=== PATIENT | female | born 1990 | race Caucasian/White ===

== ENCOUNTER 2016-11-27 18:45 | Emergency (ER) | payer OTHER ==
[~2016-11-27] VITALS: Ht 157.5 cm; Wt 47.5 kg
[2016-11-27 18:50] VITALS: Ht 157.5 cm; Wt 47.5 kg
[2016-11-27 21:56] LABS: BASOPHIL # 0.1 10^3/ul (0.0-0.1); BASOPHILS % 0.4 % (0.0-2.0); EOSINOPHILS # 0.3 10^3/ul (0.0-0.5); HEMATOCRIT 42.6 % (37.0-47.0); HEMOGLOBIN 14.8 g/dl (12.0-16.0); LYMPHOCYTES # 3.1 10^3/ul (0.8-2.9); MEAN CORPUSCULAR HEMOGLOBIN 30.6 pg (29.0-33.0); MEAN CORPUSCULAR HGB CONC 34.8 g/dl (32.0-37.0); MEAN CORPUSCULAR VOLUME 87.9 fl (82.0-101.0); MEAN PLATELET VOLUME 8.8 fl (7.4-10.4); MONOCYTE # 0.6 10^3/ul (0.3-0.9); MONOCYTES % 4.8 % (0.0-11.0); NEUTROPHIL # 9.2 10^3/ul (1.6-7.5); NEUTROPHILS % 69.8 % (39.0-77.0); PLATELET COUNT 356 10^3/UL (140-440); RED BLOOD COUNT 4.85 10^6/ul (4.20-5.40); RED CELL DISTRIBUTION WIDTH 12.6 % (11.5-14.5); UNCORRECTED WBC 13.2 10^3/ul (4.8-10.8); WHITE BLOOD COUNT 13.2 10^3/ul (4.8-10.8)
[2016-11-27 21:57] LABS: CONDITION 1
--- NOTE | 2016-11-27 22:06 | ERD ---
ER Documentation Chief Complaint Date/Time DATE: 11/27/16 TIME: 22:04 Chief Complaint sudden gush of vag blood in the last hr, LMP=10/09/16 HPI This is a 26-year-old female presents to the ER with vaginal bleeding that started earlier today. Patient states that vaginal bleeding is severe. Patient has been spotting over the last week however he got worse today. A1. She is about 7 weeks . Her last normal menstrual period was on 10/09/2015. She denies any urinary frequency or dysuria. She denies any pelvic pain. She denies fevers or chills. ROS 12 point review of systems was done, all negative except per HPI. Allergies Allergies: Coded Allergies: No Known Allergy (Unverified , 11/27/16) PMhx/Soc Hx Alcohol Use: No Hx Substance Use: No Hx Tobacco Use: No Physical Exam Vitals Vital Signs Date Time Temp Pulse Resp B/P Pulse Ox O2 Delivery O2 Flow Rate FiO2 11/27/16 18:50 98.7 110 18 110/63 96 Physical Exam GENERAL: The patient is well developed and appropriate for usual state of health , in no apparent distress. HEENT: Atraumatic. CHEST: Clear to auscultation bilaterally. There are no rales, wheezes or rhonchi. HEART: Regular rate and rhythm. No murmurs, clicks, rubs or gallops. ABDOMEN: Soft, nontender and nondistended. Good bowel sounds. No rebound or guarding. No gross peritonitis. No gross organomegaly or masses. No Olson sign or McBurney point tenderness. BACK: No midline or flank tenderness. NEURO: Alert and oriented. SKIN: The skin is warm and dry. Result Diagram: 11/27/162114 Results 24 hrs Laboratory Tests Test 11/27/16 21:15 11/27/16 22:55 Basophils # 0.110^3/ul Basophils % 0.4% Beta HCG, Quantitative 17373.0mIU/ml Eosinophils # 0.310^3/ul Eosinophils % 2.0% Hematocrit 42.6% Hemoglobin 14.8g/dl Lymphocytes # 3.110^3/ul Lymphocytes % 23.0% Mean Corpuscular Hemoglobin 30.6pg Mean Corpuscular Hemoglobin Concent 34.8g/dl Mean Corpuscular Volume 87.9fl Mean Platelet Volume 8.8fl Monocytes # 0.610^3/ul Monocytes % 4.8% Neutrophils # 9.210^3/ul Neutrophils % 69.8% Nucleated Red Blood Cells # 0.010^3/ul Nucleated Red Blood Cells % 0.0/100WBC Platelet Count 88065^3/UL Red Blood Count 4.8510^6/ul Red Cell Distribution Width 12.6% White Blood Count 13.210^3/ul Urine Bilirubin NEGATIVE Urine Clarity SLIGHTLY CLOUDY Urine Color RED Urine Glucose NEGATIVE% Urine Hemoglobin 3+ Urine Ketones NEGATIVE Urine Leukocyte Esterase TRACE Urine Microscopic RBC Pending Urine Microscopic WBC Pending Urine Nitrite NEGATIVE Urine Specific [place] 1.010 Urine Total Protein NEGATIVE Urine Urobilinogen 0.2 E.U./dL Urine pH 6.5 Procedures/MDM Differential diagnosis: Threatened , missed , incomplete , ectopic , molar , UTI, pyelonephritis. At this time patient's ultrasound is normal. No evidence of urinary tract infection or pyelonephritis. At this time patient may be having a threatened , even though everything does look normal patient does need close follow-up within 48 hours. A follow-up with her primary care doctor return to ER sooner symptoms worsen. My medical decision making sure with patient she understands and agrees with plan. Departure Diagnosis: Primary Impression: Threatened Condition: Stable ERINN ESPINO Nov 27, 2016 22:06
--- NOTE | 2016-11-27 22:22 | RADRPT ---
PROCEDURE: ULTRASOUND OBSTETRICAL CLINICAL INDICATION: 26-year-old female with vaginal bleeding. TECHNIQUE: Multiple sonographic images of the pelvis were obtained. The images were reviewed on a PACS workstation. COMPARISON: None. FINDINGS: The uterus is visualized and measures 8.2 x 4.8 x 5.0 cm. There is a single intrauterine gestation. The mean sac diameter is 1.06 cm. There is a yolk sac present. There is a pole present with a crown-rump length of 0.25 cm. This yields an estimated gestational age of 5 weeks and 6 days. The estimated date of delivery July 24, 2017. Cardiac activity is present at 115 beats per minute. There is no evidence for free fluid. The right ovary has a normal echotexture and measures 2.9 x 1. 8 x 2.4 cm. There is a right ovarian cyst measuring approximately 1.7 x 1.4 x 1.4 cm. The left ovary has a normal echotexture and measures 1.7 x 1.3 x 1.4 cm. There is normal flow to the ovaries bilat erally. No adnexal masses are noted. IMPRESSION: 1. Single early viable intrauterine gestation of approximately 5 weeks 6 days. The estimated date of delivery is July 24, 2017. 2. Right ovarian cyst. .David Gould MD, Date Time Electronically viewed and signed by .David Gould MD, MD on 11/27/2016 22:22 .M/
[2016-11-27 23:03] LABS: ADD UMIC YES; URINE BILIRUBIN (Dip) NEGATIVE (NEGATIVE); URINE BLOOD (Dip) 3+ (NEGATIVE); URINE GLUCOSE (Dip) NEGATIVE (NEGATIVE); URINE KETONES (Dip) NEGATIVE (NEGATIVE); URINE LEUKOCYTE ESTERASE (Dip) TRACE (NEGATIVE); URINE NITRITE (Dip) NEGATIVE (NEGATIVE); URINE TOTAL PROTEIN (Dip) NEGATIVE (NEGATIVE); URINE UROBILINOGEN (Dip) 0.2 E.U./dL (0.1-1.0)
[2016-11-27 23:06] LABS: URINE COLOR RED (YELLOW)
[2016-11-27 23:55] LABS: SQUAMOUS EPITHELIAL CELL,UR FEW; URINE RBCS >200 /HPF (0)
[2016-11-27 23:56] LABS: BACTERIA,URINE RARE
== END 2016-11-27 23:46 | disposition home or self-care (01) ==
LOC: FTE 18:45
DX: O20.0 Threatened abortion (principal)
CPT/HCPCS: 36415; 76801; 76817; 81001; 81003; 84702; 85025; 86900; 86901

== ENCOUNTER 2017-01-28 10:50 | Emergency (ER) | payer OTHER ==
[~2017-01-28] VITALS: Wt 48.0 kg
--- NOTE | 2017-01-28 11:14 | ERD ---
ER Documentation Chief Complaint Date/Time DATE: 01/28/17 TIME: 11:12 Chief Complaint 14 weeks with spotting HPI This is a 26-year-old female who presents the emergency department today complaining of vaginal bleeding that started earlier this morning. States she is 14 weeks . Patient states first couple of months of her she had vaginal bleeding and had a subchorionic hemorrhage. She states that the bleeding stopped for 4 weeks and then this morning she started having heavier bleeding. Denies any fevers or chills, abdominal pain, dysuria, nausea or vomiting. ROS All systems reviewed and are negative except as per history of present illness. Medications Home Meds Active Scripts Acetaminophen* (Tylophen*) 500 Mg Capsule, 1 CAP PO Q6H Y for PAIN AND OR ELEVATED TEMP, #30 CAP Prov:SONU LOPEZ PA-C 01/28/17 Allergies Allergies: Coded Allergies: No Known Allergy (Unverified , 01/28/17) PMhx/Soc Medical and Surgical Hx: pt denies Medical Hx, pt denies Surgical Hx Hx Alcohol Use: No Hx Substance Use: No Hx Tobacco Use: No Smoking Status: Never smoker Physical Exam Vitals Vital Signs Date Time Temp Pulse Resp B/P Pulse Ox O2 Delivery O2 Flow Rate FiO2 01/28/17 10:58 98.1 71 18 119/56 99 Physical Exam Const: NAD Head: Atraumatic Eyes: Normal Conjunctiva ENT: Normal External Ears, Nose and Mouth. Neck: Full range of motion..~ No meningismus. Resp: Clear to auscultation bilaterally Cardio: Regular rate and rhythm, no murmurs Abd: Soft, non tender, non distended. Normal bowel sounds. No right lower quadrant pain. No left lower quadrant pain. Skin: No petechiae or rashes Neur: Awake and alert Psych: Normal Mood and Affect Result Diagram: 01/28/17 1122 Results 24 hrs Laboratory Tests Test 01/28/17 11:22 White Blood Count 13.310^3/ul Red Blood Count 4.5410^6/ul Hemoglobin 14.1g/dl Hematocrit 40.7% Mean Corpuscular Volume 89.6fl Mean Corpuscular Hemoglobin 31.1pg Mean Corpuscular Hemoglobin Concent 34.6g/dl Red Cell Distribution Width 12.2% Platelet Count 19820^3/UL Mean Platelet Volume 11.0fl Neutrophils % 82.9% Lymphocytes % 13.5% Monocytes % 2.4% Eosinophils % 0.6% Basophils % 0.3% Nucleated Red Blood Cells % 0.0/100WBC Neutrophils # 11.010^3/ul Lymphocytes # 1.810^3/ul Monocytes # 0.310^3/ul Eosinophils # 0.110^3/ul Basophils # 0.010^3/ul Nucleated Red Blood Cells # 0.010^3/ul Urine Color LT. YELLOW Urine Clarity CLEAR Urine pH 6.0 Urine Specific [place] 1.020 Urine Ketones 40 Urine Nitrite NEGATIVE Urine Bilirubin NEGATIVE Urine Urobilinogen 0.2 E.U./dL Urine Leukocyte Esterase NEGATIVE Urine Microscopic RBC 5-10/HPF Urine Microscopic WBC 0-2/HPF Urine Squamous Epithelial Cells FEW Urine Hemoglobin 3+ Urine Glucose NEGATIVE% Urine Total Protein NEGATIVE Beta HCG, Quantitative 476851.0mIU/ml DIAGNOSTIC IMAGING REPORT Patient: HERMELINDA WEN : 1990 Age: 26 Sex: F MR #: [id number] DOS: 01/28/17 0000 Ordering MD: SONU LOPEZ PA-C Location: [facility] Room/Bed: PROCEDURE: US OB. CLINICAL INDICATION: Size and dates , vaginal bleeding TECHNIQUE: Multiple sonographic images of the pelvis and gravid uterus were obtained. The images were reviewed on a PACS workstation. COMPARISON: 11/27/2016 FINDINGS: The ovaries were not visualized. There is a single viable intrauterine gestation. Cardiac activity is present with 176 beats per minute. There is a variable presentation. The placenta is anterior. There is no evidence for an abruption or placenta previa. There is a normal amount of amniotic fluid with a MVP= 3.6 cm. Measurements were made in order to determine age. The results are as follows: BPD = 3.1 cm HC = 10.5 cm AC = 8.4 cm FL = 1.6 cm Estimated gestational age of approximately 15 weeks and 0 days based on ultrasound measurements. Clinical age: 14 weeks and 5 days. The estimated date of delivery is 07/22/17, based on ultrasound measurements. The EFW = 104 g, 35.6%, based on LMP age. RPTAT: AA IMPRESSION: Single viable intrauterine gestation of approximately 15 weeks and 0 days based on ultrasound measurements. .Alverto Lugo MD, MD Date Time Electronically viewed and signed by .Alverto Lugo MD, MD on 01/28/2017 11: 55 .S/ CC: SONU LOPEZ PA-C Procedures/MDM This A1 26-year-old female who presents to the emergency department today for vaginal bleeding. Patient states she is 14 weeks . Patient has a history of subchorionic hemorrhage early in her however her bleeding had stopped for 4 weeks and started having having heavier bleeding this morning. Patient did call her SENIOR OFFIC[employer] Dr. Singh and was instructed to come here to the emergency department. I did do a complete OB workup. Laboratory work shows an elevated white blood cell count of 13.3. She is not anemic. Platelets are within normal limits. UA is negative for infection Rh status A + positive Beta quant hCG 286973.0 Ultrasound shows a single viable intrauterine gestation of approximately 15 weeks and 0 days. Estimated date of delivery is 07/22/2017. Cardiac activity is present with 176 bpm. There is no evidence for an abruption or placenta previa. There is a normal amount of amniotic fluid Patient denies any pain or nausea or vomiting. Low suspicion for ectopic , tubo-ovarian abscess, ovarian torsion. Patient symptoms at this time consistent with possible threatened versus normal given her history of subchorionic hemorrhage. I have explained the results to the patient. I instructed her to follow-up prior to next Tuesday with Dr. Cano. Patient understood Patient will be given a prescription for Tylenol for home At this time the patient is stable for discharge and outpatient management. Patient should follow up with their PCP in the next 1-2 days. They may return to the emergency department sooner for any persistent or worsening of symptoms. Patient understood and agreed with the plan. Departure Diagnosis: Primary Impression: Vaginal bleeding in patient at less than 20 weeks gestation Condition: Fair SONU LOPEZ PA-C Jan 28, 2017 11:14
[2017-01-28 11:31] LABS: ADD SCAN DIFF NO
[2017-01-28 11:43] LABS: ADD UMIC YES; URINE BILIRUBIN (Dip) NEGATIVE (NEGATIVE); URINE BLOOD (Dip) 3+ (NEGATIVE); URINE COLOR LT. YELLOW (YELLOW); URINE GLUCOSE (Dip) NEGATIVE (NEGATIVE); URINE KETONES (Dip) 40 (NEGATIVE); URINE LEUKOCYTE ESTERASE (Dip) NEGATIVE (NEGATIVE); URINE NITRITE (Dip) NEGATIVE (NEGATIVE); URINE TOTAL PROTEIN (Dip) NEGATIVE (NEGATIVE); URINE UROBILINOGEN (Dip) 0.2 E.U./dL (0.1-1.0)
[2017-01-28 11:46] LABS: BASOPHILS % 0.3 % (0.0-2.0); EOSINOPHILS # 0.1 10^3/ul (0.0-0.5); EOSINOPHILS % 0.6 % (0.0-7.0); HEMATOCRIT 40.7 % (37.0-47.0); HEMOGLOBIN 14.1 g/dl (12.0-16.0); LYMPHOCYTES # 1.8 10^3/ul (0.8-2.9); LYMPHOCYTES % 13.5 % (15.0-51.0); MEAN CORPUSCULAR HEMOGLOBIN 31.1 pg (29.0-33.0); MEAN CORPUSCULAR HGB CONC 34.6 g/dl (32.0-37.0); MEAN CORPUSCULAR VOLUME 89.6 fl (82.0-101.0); MONOCYTE # 0.3 10^3/ul (0.3-0.9); MONOCYTES % 2.4 % (0.0-11.0); NEUTROPHILS % 82.9 % (39.0-77.0); PLATELET COUNT 385 10^3/UL (140-415); RED BLOOD COUNT 4.54 10^6/ul (4.20-5.40); RED CELL DISTRIBUTION WIDTH 12.2 % (11.5-14.5); WHITE BLOOD COUNT 13.3 10^3/ul (4.8-10.8)
--- NOTE | 2017-01-28 11:55 | RADRPT ---
PROCEDURE: US OB. CLINICAL INDICATION: Size and dates , vaginal bleeding TECHNIQUE: Multiple sonographic images of the pelvis and gravid uterus were obtained. The images were reviewed on a PACS workstation. COMPARISON: 11/27/2016 FINDINGS: The ovaries were not visualized. There is a single viable intrauterine gestation. Cardiac activity is present with 176 beats per min biju. There is a variable presentation. The placenta is anterior. There is no evidence for an abruption or placenta previa. There is a normal amount of amniotic fluid with a MVP= 3.6 cm. Measurements were made in order to determine age. The results are as follows: BPD =3.1 cm HC =10.5 cm AC =8.4 cm FL =1.6 cm Estimated gestational age of approximately 15 weeks and 0 days based on ultrasound measurements. Clinical age: 14 weeks and 5 days. The estimated date of delivery is 07/22/17, based on ultrasound measurements. The EFW = 104 g, 35.6%, based on LMP age. RPTAT: AA IMPRESSION: Single viable intrauterine gestation of approximately 15 weeks and 0 days based on ultrasound measu rements. .Alverto Lugo MD, Date Time Electronically viewed and signed by .Alverto Lugo MD, MD on 01/28/2017 11:55 .S/
[2017-01-28 11:58] LABS: SQUAMOUS EPITHELIAL CELL,UR FEW
[2017-01-28] MEDS ORDERED: ACET500C5 PO (12:48)
== END 2017-01-28 12:58 | disposition home or self-care (01) ==
LOC: FTE 10:50
DX: O20.9 Hemorrhage in early pregnancy, unspecified (principal); Z3A.15 15 weeks gestation of pregnancy
CPT/HCPCS: 36415; 76805; 81001; 81003; 84702; 85025; 86900; 86901

== ENCOUNTER 2017-05-29 22:25 | Inpatient (IN) | payer OTHER ==
[~2017-05-29] VITALS: Ht 154.9 cm; Wt 53.5 kg
[~2017-05-29 22:25] MED LIST: ACET500C5 PO
[2017-05-29 22:47] VITALS: Ht 154.9 cm; Wt 53.5 kg
[2017-05-29 22:48] VITALS: BP 133/72; PULSE 98; RESP 18
[2017-05-29] MEDS ORDERED: PREN-93 PO (22:50)
[2017-05-29] MEDS ORDERED: LACTATED RINGER'S 1,000 ML IV SCH (23:18)
[2017-05-30 00:41] LABS: BASOPHILS % 0.1 % (0.0-2.0); EOSINOPHILS # 0.2 10^3/ul (0.0-0.5); EOSINOPHILS % 1.2 % (0.0-7.0); HEMATOCRIT 34.6 % (37.0-47.0); HEMOGLOBIN 11.3 g/dl (12.0-16.0); LYMPHOCYTES % 14.2 % (15.0-51.0); MEAN CORPUSCULAR HEMOGLOBIN 28.5 pg (29.0-33.0); MEAN CORPUSCULAR HGB CONC 32.7 g/dl (32.0-37.0); MEAN CORPUSCULAR VOLUME 87.4 fl (82.0-101.0); MONOCYTE # 0.7 10^3/ul (0.3-0.9); MONOCYTES % 4.6 % (0.0-11.0); NEUTROPHIL # 11.2 10^3/ul (1.6-7.5); NEUTROPHILS % 78.8 % (39.0-77.0); PLATELET COUNT 275 10^3/UL (140-415); RED BLOOD COUNT 3.96 10^6/ul (4.20-5.40); RED CELL DISTRIBUTION WIDTH 12.1 % (11.5-14.5); WHITE BLOOD COUNT 14.2 10^3/ul (4.8-10.8)
[2017-05-30 00:43] LABS: ADD UMIC NO; UR ASCORBIC ACID NEGATIVE (NEGATIVE); UR BILIRUBIN (Dip) NEGATIVE (NEGATIVE); UR BLOOD (Dip) NEGATIVE (NEGATIVE); UR CLARITY CLEAR (CLEAR); UR COLOR COLORLESS (YELLOW); UR GLUCOSE (Dip) NEGATIVE (NEGATIVE); UR KETONES (Dip) NEGATIVE (NEGATIVE); UR LEUKOCYTE ESTERASE (Dip) NEGATIVE Leu/ul (NEGATIVE); UR NITRITE (Dip) NEGATIVE (NEGATIVE); UR SPECIFIC GRAVITY (Dip) 1.002 (1.003-1.030); UR TOTAL PROTEIN (Dip) NEGATIVE (NEGATIVE); UR UROBILINOGEN (Dip) NEGATIVE (NEGATIVE)
[2017-05-30 01:00] LABS: AMYLASE 157 U/L (11-123)
--- NOTE | 2017-05-30 01:19 | RADRPT ---
PROCEDURE: Limited OB ultrasound CLINICAL INDICATION: Contractions TECHNIQUE: Limited sonographic evaluation of the gravid uterus was performed to assess the cervica l length COMPARISON: 01/28/2017. FINDINGS: Examination demonstrates cervix measuring 3.58 cm. IMPRESSION: Cervical length of 3.58 cm. RPTAT: HMVK .Jason Cruz MD, Date Time Electronically viewed and signed by .Jason Cruz MD, on 05/30/2017 01:18 .K/
[2017-05-30] MEDS: LACTATED RINGER'S 1,000 ML IV SCH ×4 (01:30→15:08)
[2017-05-30 02:06] LABS: ALBUMIN 3.9 g/dl (3.3-4.9); ALBUMIN/GLOBULIN RATIO 0.95; CALCIUM 9.9 mg/dl (8.4-10.2); CREATININE 0.54 mg/dl (0.44-1.00); POTASSIUM 4.1 mmol/L (3.5-5.1)
--- NOTE | 2017-05-30 02:53 | RADRPT ---
PROCEDURE: US Abdomen (right upper quadrant). CLINICAL INDICATION: Pain. TECHNIQUE: Multiple real-time longitudinal and transverse images of the right upper quadrant of th e abdomen were acquired utilizing a curved array transducer. Images were reviewed on a high-resoluti on PACS workstation. COMPARISON: None FINDINGS: The liver is normal in size and echogencity. There is no focal intrahepatic mass.. The gallbladder is normal. There is no pericholecystic fluid or gallbladder wall thickening or gallstones. No intr a or extrahepatic biliary dilatation is seen. The common bile duct measures 3.4 mm in maximal dimen zackary. The visualized portions of the pancreas are unremarkable with obscuration of the tail of the pancreas. No free fluid is identified. Visualized abdominal aorta and IVC are unremarkable. The right kidney measures 8.8 cm in length. There is normal echogenicity within the right kidney. There is no perinephric fluid collection. No hydronephrosis, mass, or calculus is seen. IMPRESSION: 1. Negative examination. RPTAT: HMVK .Jason Cruz MD, Date Time Electronically viewed and signed by .Jason Cruz MD, on 05/30/2017 02:53 .K/
--- NOTE | 2017-05-30 05:47 | TRIAGE ---
OB Triage Datetime Report Generated by CPN: 05/30/2017 05:47 Datetime: 05/30/2017 05:00 Labor Evaluation Frequency: OCC Monitor Mode: External Duration (sec)2399: 30-60 Quality: Mild Resting Tone Redby: Relaxed Heart Rate FHR Baseline Rate: 150 Monitor Mode: External US FHR Baseline Changes: No Baseline Change Variability: Moderate 6-25 bpm Accelerations: 15X15 Decelerations: None Category: Category I Datetime: 05/30/2017 04:15 Labor Evaluation Frequency: OCC Monitor Mode: External Heart Rate FHR Baseline Rate: 150 Monitor Mode: External US FHR Baseline Changes: No Baseline Change Variability: Moderate 6-25 bpm Accelerations: 15X15 Decelerations: None Category: Category I Datetime: 05/30/2017 04:00 Stage of : Antepartum Assessment Type: Admission Assessment Vaginal Bleeding: None Maternal Assessment Level of Consciousness: Fully Conscious Headache: Denies Blurred Vision: No Respiratory Effort: Unlabored; Regular Rhythm; Equal Expansion Nausea/Vomiting: Denies RUQ Epigastric Pain: Denies Lower Extremities Edema: None Upper Extremities Edema: None Facial Edema: None Fall Risk Assessment History of Falling: (0) No Secondary Diagnosis: (0) No Ambulatory Aid: (0) Bedrest/Nurse Assist IV Therapy: (20) Yes Gait: (0) Normal/Bedrest/Immobile Mental Status: (0) Oriented to Own Ability Fall Score: 20 Fall Risk Score Definition: No Risk: No action required Pain Assessment Pain Scale: 0 Datetime: 05/30/2017 03:45 Stage of : Antepartum Datetime: 05/30/2017 03:35 Bedside Blood Glucose: 90 Datetime: 05/30/2017 03:28 Comments: PT TO 2NE PER GURNEY Datetime: 05/30/2017 03:10 Stage of : OB Triage Datetime: 05/30/2017 03:06 Vaginal Exam Dilatation (cms): 0.0 Effacement (%): 0 Station: -3 Exam By: A JUAN M RN Datetime: 05/30/2017 03:00 Labor Evaluation Frequency: 0 Monitor Mode: External Heart Rate FHR Baseline Rate: 155 Monitor Mode: External US FHR Baseline Changes: No Baseline Change Variability: Moderate 6-25 bpm Accelerations: 15X15 Decelerations: None Category: Category I Datetime: 05/30/2017 02:00 Labor Evaluation Frequency: IRREGULAR Monitor Mode: External Duration (sec)2399: 50 Quality: Mild Pattern: Normal: <= 5 Contractions in 10 Minutes Resting Tone Redby: Relaxed Heart Rate FHR Baseline Rate: 155 Monitor Mode: External US FHR Baseline Changes: No Baseline Change Variability: Moderate 6-25 bpm Accelerations: 15X15 Decelerations: None Category: Category I Datetime: 05/30/2017 00:58 Labor Evaluation Frequency: IRREGULAR Monitor Mode: External Duration (sec)2399: 50 Quality: Mild Pattern: Normal: <= 5 Contractions in 10 Minutes Resting Tone Redby: Relaxed Heart Rate FHR Baseline Rate: 155 Monitor Mode: External US FHR Baseline Changes: No Baseline Change Variability: Moderate 6-25 bpm Accelerations: 15X15 Decelerations: None Category: Category I Datetime: 05/29/2017 23:04 Vaginal Exam Dilatation (cms): 0.0 Effacement (%): 0 Station: -3 Exam By: Odalys MCGOWAN RN Vaginal Bleeding: None Cervix, Consistency: Firm Cervix, Position: Posterior Datetime: 05/29/2017 23:00 Labor Evaluation Frequency: 2-3 Monitor Mode: External Quality: Mild Pattern: Normal: <= 5 Contractions in 10 Minutes Resting Tone Redby: Relaxed Heart Rate FHR Baseline Rate: 155 Monitor Mode: External US FHR Baseline Changes: No Baseline Change Variability: Moderate 6-25 bpm Accelerations: 15X15 Decelerations: None Category: Category I Datetime: 05/29/2017 22:45 EGA: 32.0 Datetime: 05/29/2017 22:41 Stage of : OB Triage Time of Arrival: 05/29/2017 22:15 Arrived By: Wheelchair Arrived From: Home Chief Complaint: VOMITED X1 @ 2030 Movement: Present Contractions: Denies/Absent Rupture of Membranes: Denies Vaginal Bleeding: None Vaginal Discharge: Denies Recent Sexual Intercouse: Denies Abdominal Trauma: Not Applicable Patient Complaints: None Additional Patient Complaints: GESTATIONAL DIABETIC DIET CONTROLLED Time Provider Notified: 05/29/2017 23:12 Provider Notified: DR LAMAR Initial Plan: CALL ALEE SCOTT Maternal Assessment Level of Consciousness: Fully Conscious DTR's/Clonus: DTRs 2+; No Clonus Headache: Denies Blurred Vision: No Respiratory Effort: Unlabored; Regular Rhythm; Equal Expansion Breath Sounds, Left: Clear and Equal Breath Sounds, Right: Clear and Equal Nausea/Vomiting: Denies RUQ Epigastric Pain: Denies Lower Extremities Edema: None Degree: None Upper Extremities Edema: None Degree: None Facial Edema: None Temperature Route: Oral Fall Risk Assessment History of Falling: (0) No Secondary Diagnosis: (0) No Ambulatory Aid: (0) Bedrest/Nurse Assist IV Therapy: (0) No Gait: (0) Normal/Bedrest/Immobile Mental Status: (0) Oriented to Own Ability Fall Score: 0 Fall Risk Score Definition: No Risk: No action required Monitor Mode: External Monitor Mode: External US Pain Assessment Pain Scale: 0
[2017-05-30 07:29] LABS: AMYLASE 107 U/L (11-123)
--- NOTE | 2017-05-30 10:53 | RADRPT ---
PROCEDURE: OB ultrasound for biophysical profile CLINICAL INDICATION: Variables. Nausea and vomiting. TECHNIQUE: Multiple sonographic images of the pelvis were obtained. Transabdominal view of the gr avid uterus are available for review. The images were reviewed on a PACS workstation. COMPARISON: None FINDINGS: breathing movement = 2/2 tone = 2/2 motion = 2/2 BIBIANA = 2/2 BIBIANA = 10.9 cm Single live intrauterine with cardiac activity. heart rate equals 149 beats p er minute. Presentation is breech. The placenta is anterior. IMPRESSION: 1. Single viable intrauterine gestation. 2. Biophysical profile = 8/8. 3. BIBIANA = 10.9 cm. RPTAT: KK .Froylan Mar MD, MD Date Time Electronically viewed and signed by .Froylan Mar MD, MD on 05/30/2017 10:52 .B/
--- NOTE | 2017-05-30 19:32 | HP ---
Date/Time of Note Date/Time of Note DATE: 05/30/17 TIME: 19:28 OB - History Hx of Present Chief Complaint: nausea and vomiting Estimated Due Date: Jul 24, 2017 : 2 Para: 0 Spontaneous : 0 Therapeutic : 1 Care: Good Care Ultrasounds: Normal mid trimester US Obstetrical Complications: Gestational Diabetes Medical Complications: None Past Family/Social History * Past Medical, Surgical, Family and Obstetric Histories reviewed from chart. OB Admission Exam Vital Signs Vital Signs Vital Signs Date Time Temp Pulse Resp B/P Pulse Ox O2 Delivery O2 Flow Rate FiO2 05/29/17 22:48 97.4 98 18 133/72 Room Air Physical Exam HEENT: WNL Heart: Rhythm Normal Lungs: Clear, Equal Abdomen: WNL Extremities: Normal Reflexes: Normal Cervical Dilatation: None Heart Rate: 130's Accelerations: Accelerations Present Decelerations: Early Decelerations Varibility: Moderate Last 72 hourBlood Glucose Bedside Glucose - 72 Hours Test 05/30/17 03:35 05/30/17 08:44 05/30/17 10:53 05/30/17 13:07 Bedside Glucose 90mg/dL (70-220) 87mg/dL (70-220) 72mg/dL (70-220) 112mg/dL (70-220) Last 72 hours Lab Results CBC & BMP 05/30/17 00:08 Liver Function Test 05/30/17 00:08 Alanine Aminotransferase (ALT/SGPT) 58 Albumin 3.9 Alkaline Phosphatase 145 H Aspartate Amino Transf (AST/SGOT) 39 Direct Bilirubin 0.00 Total Protein 8.0 OB Assessment/Plan Reason for admission: other ( 32 weeks nausea and vomiting) Plan: Other (IV hydration, monitor) CHRISTOPHE LAMAR MD May 30, 2017 19:31
--- NOTE | 2017-05-30 19:34 | DS ---
Date/Time of Note Date/Time of Note DATE: 05/30/17 TIME: 19:32 Obstetrical Discharge Record Final Diagnosis Final Diagnosis: not delivered Other Final Diagnosis Gastroenteritis Complications Gestational Diabetes Condition on Discharge Physical Assessment Voiding: Yes Bowel Movement: Yes Calf Tenderness: No Patient Condition: Stable CHRISTOPHE LAMAR MD May 30, 2017 19:34
== END 2017-05-30 19:51 | disposition home or self-care (01) | DRG 778 ==
LOC: OBT 22:25 → L-D 22:26 → OBT 05-30 03:25 → OBG 05-30 03:25
PROVIDERS: ADMIT Obstetrics & Gynecology; ATTEND Obstetrics & Gynecology
DX: O60.03 Preterm labor without delivery, third trimester (principal); O24.419 Gestational diabetes mellitus in pregnancy, unspecified control; K52.89 Other specified noninfective gastroenteritis and colitis; O76 Abnormality in fetal heart rate and rhythm complicating labor and delivery; Z3A.32 32 weeks gestation of pregnancy; O99.613 Diseases of the digestive system complicating pregnancy, third trimester
CPT/HCPCS: 36415; 76705; 76817; 76818; 80053; 81003; 82150; 82962; 83690; 85025; 87086; 96360; 96361; G0463; J7120

== ENCOUNTER 2017-06-15 00:30 | Inpatient (IN) | payer OTHER ==
[2017-06-15] VITALS (8 sets, daily range): BP systolic 125–135; BP diastolic 78–85; PULSE 72–92; RESP 18–19
[~2017-06-15] VITALS: Ht 157.5 cm; Wt 55.0 kg
[~2017-06-15 00:30] MED LIST changes: +PREN-93 PO
[2017-06-15] MEDS ORDERED: LACTATED RINGER'S 1,000 ML IV SCH (01:36)
[2017-06-15] MEDS ORDERED: CARBOPROST 250 MCG INJ IM PRN ×2 (02:00→06:30)
[2017-06-15] MEDS ORDERED: MISOPROSTOL 200 MCG TAB PR PRN ×2 (02:00→06:30)
[2017-06-15] MEDS ORDERED: BUTORPHANOL 2 MG INJ IV PRN (02:00)
[2017-06-15] MEDS ORDERED: OXYTOCIN 30 UNITS/LR 500 ML IV PRN ×2 (02:00→06:30)
[2017-06-15] MEDS ORDERED: IBUPROFEN 600 MG TAB PO PRN (02:00)
[2017-06-15] MEDS ORDERED: METHYLERGONOVINE 0.2 MG INJ IM PRN ×2 (02:00→06:30)
[2017-06-15] MEDS ORDERED: LIDOCAINE 1% (MPF) 30 ML INJ INJ PRN (02:00)
[2017-06-15] MEDS ORDERED: AMPICILLIN 2 GM/NS (PMX) 100 ML IV ONE (02:00)
--- NOTE | 2017-06-15 02:16 | HP ---
Date/Time of Note Date/Time of Note DATE: 06/15/17 TIME: 02:11 OB - History Hx of Present Free Text/Dictation Pt is a 27yo at 34+3 w/GDMA1 presenting for evaluation s/p leakage of clear fluid early this morning at 0010. Contractions followed thereafter approximately q10 min. Pt reports normal FM and denies VB, JOHN, visual changes or RUQ pain. Pt states GDM is well controlled although she reports she did not check FSBG at all yesterday. Estimated Due Date: Jul 24, 2017 : 2 Para: 0 Therapeutic : 1 Care: Good Care (with Dr. Solomon) Obstetrical Complications: Gestational Diabetes Medical Complications: None Past Family/Social History * Past Medical, Surgical, Family and Obstetric Histories reviewed from chart. Blood Type: A+ Rubella: immune RPR/VDRL: Negative GBS Status: Unknown HBsAG: Negative OB Admission Exam Vital Signs Vital Signs Vital Signs Date Time Temp Pulse Resp B/P Pulse Ox O2 Delivery O2 Flow Rate FiO2 06/15/17 01:19 98.2 92 18 128/84 Room Air BPs 140/92, 141/92 Physical Exam HEENT: WNL Heart: Rhythm Normal Lungs: Clear Abdomen: WNL Extremities: Normal Heart Rate: 140's Accelerations: Accelerations Present Decelerations: No Decelerations Varibility: Moderate Contractions on Admission: 6-10 Minutes Apart OB Assessment/Plan Other Assessment: PPROM at >34wks GA Malpresentation Reactive NST Plan: Section Other plan: Plan to proceed with primary C/S in the setting of PPROM at >34wks GA. The risks of C/S discussed include but are not limited to pain, infection, damage to nearby organs, structures or injury to baby, bleeding possibly requiring transfusion of blood products and abnormal placentation in future pregnancies. Pt made aware that should injury to organs or structures be noted during the procedure, they will be repaired. However, there is a possibility that injuries may be sustained at the time of the C/S and go unrecognized. Thus additional surgeries may be necessary to repair damage during the C/S. Infectious and transfusion related reaction risks were also explained. The pt had an opportunity to have her questions answered. Written consent for C/S and transfusion of blood products were signed. RN and Anesthesia teams made aware of plan. ALTAGRACIA GEORGES MD Jun 15, 2017 02:16
[2017-06-15] MEDS ORDERED: LACTATED RINGER'S 1,000 ML IV ONE (02:24)
[2017-06-15] MEDS ORDERED: METOCLOPRAMIDE 10 MG INJ IV ONE (02:30)
[2017-06-15] MEDS ORDERED: CITRIC ACID/NA CITRATE 30 ML CUP PO ONE (02:30)
[2017-06-15] MEDS ORDERED: FAMOTIDINE 20 MG INJ IV ONE (02:30)
[2017-06-15] MEDS ORDERED: CEFAZOLIN 2 GM/50 ML (PMX) 50 ML IVPB ONE (02:30)
--- NOTE | 2017-06-15 02:41 | TRIAGE ---
OB Triage Datetime Report Generated by CPN: 06/15/2017 02:40 Datetime: 06/15/2017 01:31 Vaginal Exam Membrane Status: Ruptured Datetime: 06/15/2017 01:09 Time of Arrival: 06/15/2017 00:32 EGA: 34.3 Arrived By: Wheelchair Arrived From: Home Chief Complaint: c/ srom 0010 Movement: Present Contractions: Denies/Absent Rupture of Membranes: Ruptured Vaginal Bleeding: None Vaginal Discharge: Present Recent Sexual Intercouse: Denies Abdominal Trauma: Not Applicable Patient Complaints: Other Time Provider Notified: 06/15/2017 01:25 Provider Notified: Dr Garcia Initial Plan: EFM, SVE Datetime: 06/15/2017 00:44 Stage of : OB Triage Maternal Assessment Level of Consciousness: Fully Conscious Headache: Denies Blurred Vision: No Respiratory Effort: Unlabored Nausea/Vomiting: Denies RUQ Epigastric Pain: Denies Facial Edema: None Labor Evaluation Frequency: placed Monitor Mode: External Resting Tone Chalmers: Relaxed Monitor Mode: External US Comments: 150 Pain Assessment Pain Scale: 0 Pain Presence: None/Denies Pain Type: N/A Datetime: 05/30/2017 19:41 Labor Evaluation Frequency: none Monitor Mode: External Resting Tone Chalmers: Relaxed Heart Rate FHR Baseline Rate: 150 Monitor Mode: External US FHR Baseline Changes: No Baseline Change Variability: Moderate 6-25 bpm Accelerations: 15X15 Decelerations: None Category: Category I Pain Assessment Pain Scale: 0 Pain Presence: None/Denies Datetime: 05/30/2017 18:00 Stage of : Antepartum Maternal Assessment Level of Consciousness: Fully Conscious Headache: Denies Nausea/Vomiting: Denies RUQ Epigastric Pain: Denies Labor Evaluation Frequency: 0/hr Monitor Mode: External Heart Rate FHR Baseline Rate: 150 Monitor Mode: External US Variability: Moderate 6-25 bpm Accelerations: 15X15 Decelerations: None Pain Assessment Pain Scale: 0 Pain Presence: None/Denies Vaginal Bleeding: None Datetime: 05/30/2017 17:00 Stage of : Antepartum Maternal Assessment Level of Consciousness: Fully Conscious Headache: Denies Nausea/Vomiting: Denies RUQ Epigastric Pain: Denies Labor Evaluation Frequency: 0/hr Monitor Mode: External Heart Rate FHR Baseline Rate: 145 Monitor Mode: External US Variability: Moderate 6-25 bpm Accelerations: 15X15 Decelerations: None Pain Assessment Pain Scale: 0 Pain Presence: None/Denies Vaginal Bleeding: None Datetime: 05/30/2017 16:16 Pain Presence: None/Denies Datetime: 05/30/2017 16:00 Stage of : Antepartum Maternal Assessment Level of Consciousness: Fully Conscious Headache: Denies Nausea/Vomiting: Denies RUQ Epigastric Pain: Denies Labor Evaluation Frequency: 0/hr Monitor Mode: External Heart Rate FHR Baseline Rate: 145 Monitor Mode: External US Variability: Moderate 6-25 bpm Accelerations: 15X15 Decelerations: None Pain Assessment Pain Scale: 0 Pain Presence: None/Denies Vaginal Bleeding: None Datetime: 05/30/2017 15:38 Stage of : Antepartum Temperature Route: Oral Datetime: 05/30/2017 15:37 Resting Tone Chalmers: Relaxed Pain Presence: None/Denies Datetime: 05/30/2017 15:08 Maternal Assessment Level of Consciousness: Fully Conscious Headache: Denies Blurred Vision: No Respiratory Effort: Unlabored Nausea/Vomiting: Denies Pain Presence: None/Denies Datetime: 05/30/2017 15:00 Stage of : Antepartum Maternal Assessment Level of Consciousness: Fully Conscious Headache: Denies Nausea/Vomiting: Denies RUQ Epigastric Pain: Denies Labor Evaluation Frequency: 0/hr Monitor Mode: External Heart Rate FHR Baseline Rate: 150 Monitor Mode: External US Variability: Moderate 6-25 bpm Accelerations: 15X15 Decelerations: None Pain Assessment Pain Scale: 0 Pain Presence: None/Denies Vaginal Bleeding: None Datetime: 05/30/2017 14:52 Pain Presence: None/Denies Datetime: 05/30/2017 14:00 Stage of : Antepartum Maternal Assessment Level of Consciousness: Fully Conscious Headache: Denies Nausea/Vomiting: Denies RUQ Epigastric Pain: Denies Labor Evaluation Frequency: 0/hr Monitor Mode: External Heart Rate FHR Baseline Rate: 150 Monitor Mode: External US Variability: Moderate 6-25 bpm Accelerations: 15X15 Decelerations: None Pain Assessment Pain Scale: 0 Pain Presence: None/Denies Vaginal Bleeding: None Datetime: 05/30/2017 13:08 Bedside Blood Glucose: 112 Pain Presence: None/Denies Datetime: 05/30/2017 13:00 Stage of : Antepartum Maternal Assessment Level of Consciousness: Fully Conscious Headache: Denies Nausea/Vomiting: Denies RUQ Epigastric Pain: Denies Labor Evaluation Frequency: 2/hr Monitor Mode: External Duration (sec)2399: 90 Quality: Mild Heart Rate FHR Baseline Rate: 150 Monitor Mode: External US Variability: Moderate 6-25 bpm Accelerations: 15X15 Decelerations: None Pain Assessment Pain Scale: 0 Pain Presence: None/Denies Vaginal Bleeding: None Datetime: 05/30/2017 12:00 Stage of : Antepartum Maternal Assessment Level of Consciousness: Fully Conscious Headache: Denies Nausea/Vomiting: Denies RUQ Epigastric Pain: Denies Monitor Mode: External Pain Assessment Pain Scale: 0 Pain Presence: None/Denies Vaginal Bleeding: None Datetime: 05/30/2017 11:53 Resting Tone Chalmers: Relaxed Pain Presence: None/Denies Datetime: 05/30/2017 11:00 Stage of : Antepartum Maternal Assessment Level of Consciousness: Fully Conscious Headache: Denies Nausea/Vomiting: Denies RUQ Epigastric Pain: Denies Labor Evaluation Frequency: occassional Monitor Mode: External Duration (sec)2399: 60 Quality: Mild Heart Rate FHR Baseline Rate: 145 Monitor Mode: External US Variability: Moderate 6-25 bpm Accelerations: 15X15 Decelerations: None (Annotations: none this hour) Pain Assessment Pain Scale: 0 Pain Presence: None/Denies Vaginal Bleeding: None Datetime: 05/30/2017 10:55 Maternal Assessment Level of Consciousness: Fully Conscious Headache: Denies Blurred Vision: No Nausea/Vomiting: Denies RUQ Epigastric Pain: Denies Bedside Blood Glucose: 72 Comments: pt. states she wants to ambulate w/ out the monitors Pain Presence: None/Denies Datetime: 05/30/2017 10:33 Comments: u.s. at bedside Datetime: 05/30/2017 10:00 Stage of : Antepartum Maternal Assessment Level of Consciousness: Fully Conscious Headache: Denies Nausea/Vomiting: Denies RUQ Epigastric Pain: Denies Labor Evaluation Frequency: occassional Monitor Mode: External Duration (sec)2399: 60 Quality: Mild Heart Rate FHR Baseline Rate: 145 Monitor Mode: External US Variability: Moderate 6-25 bpm Accelerations: 15X15 Decelerations: Variable (Annotations: x1) Pain Assessment Pain Scale: 0 Pain Presence: None/Denies Vaginal Bleeding: None Datetime: 05/30/2017 09:00 Stage of : Antepartum Maternal Assessment Level of Consciousness: Fully Conscious Headache: Denies Nausea/Vomiting: Denies RUQ Epigastric Pain: Denies Labor Evaluation Frequency: occassional Monitor Mode: External Duration (sec)2399: 80-40 Quality: Mild Contraction Comments: pt. denies any uc's Heart Rate FHR Baseline Rate: 145 Monitor Mode: External US Variability: Moderate 6-25 bpm Accelerations: 15X15 Decelerations: None Pain Assessment Pain Scale: 0 Pain Presence: None/Denies Vaginal Bleeding: None Datetime: 05/30/2017 08:56 Pain Presence: None/Denies Datetime: 05/30/2017 08:44 Bedside Blood Glucose: 87 Pain Presence: None/Denies Datetime: 05/30/2017 08:03 Resting Tone Chalmers: Relaxed Contraction Comments: pt. denies Monitor Mode: External US Pain Presence: None/Denies Datetime: 05/30/2017 08:00 Stage of : Antepartum Maternal Assessment Level of Consciousness: Fully Conscious Headache: Denies Nausea/Vomiting: Denies RUQ Epigastric Pain: Denies Labor Evaluation Frequency: occassional Monitor Mode: External Duration (sec)2399: 40-50 Quality: Mild Resting Tone Chalmers: Relaxed Interventions: Side to Side Heart Rate FHR Baseline Rate: 145 Monitor Mode: External US Variability: Moderate 6-25 bpm Accelerations: 15X15 Decelerations: Variable (Annotations: x1) Pain Assessment Pain Scale: 0 Pain Presence: None/Denies Vaginal Exam Membrane Status: Intact Vaginal Bleeding: None Datetime: 05/30/2017 07:36 Labor Evaluation Frequency: occassional Monitor Mode: External Duration (sec)2399: 40-50 Quality: Mild Resting Tone Chalmers: Relaxed Heart Rate FHR Baseline Rate: 145 Monitor Mode: External US Variability: Moderate 6-25 bpm Accelerations: 15X15 Decelerations: None Comments: ega 32.1 Datetime: 05/30/2017 07:35 Assessment Type: Ongoing Assessment Maternal Assessment Level of Consciousness: Fully Conscious DTR's/Clonus: DTRs 2+; No Clonus Headache: Denies Blurred Vision: No Respiratory Effort: Unlabored; Regular Rhythm; Equal Expansion Breath Sounds, Left: Clear and Equal Breath Sounds, Right: Clear and Equal Nausea/Vomiting: Denies RUQ Epigastric Pain: Denies Lower Extremities Edema: None Upper Extremities Edema: None Facial Edema: None Fall Risk Assessment History of Falling: (0) No Secondary Diagnosis: (0) No Ambulatory Aid: (0) Bedrest/Nurse Assist IV Therapy: (20) Yes Gait: (0) Normal/Bedrest/Immobile Mental Status: (0) Oriented to Own Ability Fall Score: 20 Fall Risk Score Definition: No Risk: No action required Datetime: 05/30/2017 07:08 Maternal Assessment Level of Consciousness: Fully Conscious Headache: Denies Blurred Vision: No Respiratory Effort: Unlabored Breath Sounds, Left: Clear and Equal Breath Sounds, Right: Clear and Equal Nausea/Vomiting: Hx of Nausea/Vomiting RUQ Epigastric Pain: Denies Pain Presence: None/Denies Datetime: 05/30/2017 07:02 Stage of : Antepartum Datetime: 05/30/2017 07:00 Labor Evaluation Frequency: X1 Monitor Mode: External Duration (sec)2399: 60 Quality: Mild Resting Tone Chalmers: Relaxed Heart Rate FHR Baseline Rate: 150 Monitor Mode: External US FHR Baseline Changes: No Baseline Change Variability: Moderate 6-25 bpm Accelerations: 15X15 Decelerations: None Category: Category I Datetime: 05/30/2017 06:28 Stage of : Antepartum Datetime: 05/30/2017 06:25 Stage of : Antepartum Datetime: 05/30/2017 06:20 Stage of : Antepartum Datetime: 05/30/2017 06:00 Labor Evaluation Frequency: 0 Monitor Mode: External Heart Rate FHR Baseline Rate: 150 Monitor Mode: External US FHR Baseline Changes: No Baseline Change Variability: Moderate 6-25 bpm Accelerations: 15X15 Decelerations: None Category: Category I Datetime: 05/30/2017 04:00 Fall Score: 20 Fall Risk Score Definition: No Risk: No action required Datetime: 05/29/2017 22:45 EGA: 32.0 Datetime: 05/29/2017 22:41 Fall Score: 0 Fall Risk Score Definition: No Risk: No action required
--- NOTE | 2017-06-15 03:14 | RADRPT ---
PROCEDURE: US OB. CLINICAL INDICATION: Spontaneous rupture of membranes, labor. TECHNIQUE: Multiple sonographic images of the pelvis were obtained. Transabdominal imaging only w as performed. The images were reviewed on a PACS workstation. COMPARISON: 05/30/2017 FINDINGS: There is a single viable intrauterine gestation. Cardiac activity is present with 157 beats per minute. There is a breech presentation. Measurements were made in order to determine age. The results are as follows: BPD = 8.01 cm HC = 28.61 cm AC = 25.80 cm FL = 6.22 cm Estimated gestational age of approximately 31 weeks 3 days. The estimated date of delivery is 08/14/2017. The EFW = 1680 g. EFW percentile: <3% The placenta is fundal, grade II. There is no evidence for an abruption or placenta previa. IMPRESSION: 1. Single viable intrauterine gestation of approximately 31 weeks 3 days, based on ultrasound measu rements. The estimated date of delivery is 08/14/2017. 2. EFW percentile: <3%. RPTAT: HTAR .Shaquille Chapman MD, MD Date Time Electronically viewed and signed by .Shaquille Chapman MD, on 06/15/2017 03:13 .R/
[2017-06-15 03:19] LABS: BASOPHIL # 0.1 10^3/ul (0.0-0.1); BASOPHILS % 0.4 % (0.0-2.0); EOSINOPHILS # 0.1 10^3/ul (0.0-0.5); HEMATOCRIT 34.2 % (37.0-47.0); LYMPHOCYTES # 2.7 10^3/ul (0.8-2.9); LYMPHOCYTES % 20.3 % (15.0-51.0); MEAN CORPUSCULAR HEMOGLOBIN 27.6 pg (29.0-33.0); MEAN CORPUSCULAR HGB CONC 32.2 g/dl (32.0-37.0); MEAN CORPUSCULAR VOLUME 85.7 fl (82.0-101.0); MEAN PLATELET VOLUME 12.5 fl (7.4-10.4); MONOCYTE # 0.7 10^3/ul (0.3-0.9); MONOCYTES % 5.4 % (0.0-11.0); NEUTROPHILS % 72.1 % (39.0-77.0); PLATELET COUNT 265 10^3/UL (140-415); RED BLOOD COUNT 3.99 10^6/ul (4.20-5.40); RED CELL DISTRIBUTION WIDTH 12.5 % (11.5-14.5); WHITE BLOOD COUNT 13.2 10^3/ul (4.8-10.8)
[2017-06-15 03:41] LABS: INR 0.9; PARTIAL THROMBOPLASTIN TIME 26.1 Sec (25.0-35.0); PROTIME 12.1 Sec (12.2-14.2); PT RATIO 0.9
[2017-06-15] MEDS ORDERED: LACTATED RINGER'S 1,000 ML IV PRN (04:00)
[2017-06-15 04:25] LABS: ALANINE AMINOTRANSFERASE 44 IU/L (13-69); ALBUMIN 3.7 g/dl (3.3-4.9); ALBUMIN/GLOBULIN RATIO 0.92; ALKALINE PHOSPHATASE 159 IU/L (42-121); ANION GAP 18 (8-16); ASPARTATE AMINO TRANSFERASE 34 IU/L (15-46); BILIRUBIN,INDIRECT 0.1 mg/dl (0-1.1); BILIRUBIN,TOTAL 0.1 mg/dl (0.2-1.3); BLOOD UREA NITROGEN 9 mg/dl (7-20); CALCIUM 9.2 mg/dl (8.4-10.2); CARBON DIOXIDE 22 mmol/L (21-31); CHLORIDE 103 mmol/L (97-110); CREATININE 0.53 mg/dl (0.44-1.00); GLUCOSE 74 mg/dl (70-220); POTASSIUM 4.3 mmol/L (3.5-5.1); SODIUM 139 mmol/L (135-144); TOTAL PROTEIN 7.7 g/dl (6.1-8.1)
[2017-06-15] MEDS ORDERED: morphine SULFATE/PF (10 MG/10 ML) INJ ONE (04:55)
[2017-06-15] MEDS ORDERED: FENTAnyl 50 MCG/ML VIAL ONE (04:56)
[2017-06-15] MEDS ORDERED: PHENYLephrine (100 MCG/ML) 5ML SYG ONE ×2 (05:10→05:30)
[2017-06-15] MEDS ORDERED: ONDANSETRON 4 MG INJ IV PRN ×2 (05:30→06:30)
[2017-06-15] MEDS ORDERED: KETOROLAC 30 MG INJ IV PRN (05:30)
[2017-06-15] MEDS ORDERED: DIPHENHYDRAMINE 50 MG INJ IV PRN ×2 (05:30→06:30)
[2017-06-15] MEDS ORDERED: HYDROmorphONE (0.2 MG/ML) 10ML SYG IV PRN (05:30)
[2017-06-15] MEDS ORDERED: PROCHLORPERAZINE 10 MG INJ IV PRN (05:30)
[2017-06-15] MEDS ORDERED: MEPERIDINE 25 MG INJ IV PRN (05:30)
[2017-06-15] MEDS ORDERED: FENTAnyl 50 MCG/ML VIAL IV PRN (05:30)
[2017-06-15] MEDS ORDERED: ONDANSETRON 4 MG INJ ONE (05:38)
[2017-06-15] MEDS ORDERED: MEPERIDINE 100 MG INJ ONE (05:39)
[2017-06-15] MEDS ORDERED: OXYTOCIN 30 UNITS/LR 500 ML IV ONE (05:44)
[2017-06-15] MEDS ORDERED: AMPICILLIN 1 GM/NS (PMX) 50 ML IV SCH (06:00)
--- NOTE | 2017-06-15 06:28 | OPR ---
Operative Report Planned Procedure Procedure date Jun 15, 2017 Procedure(s) Primary Low Transverse Section via Pfannenstiel Incision Performed by: ALTAGRACIA GEORGES MD Assisting provider: LAZARO ROONEY M.D. Anesthesiologist: DARLENE COX MD Pre-procedure diagnosis 1)IUP at 34+2wks GA; 2)Breech presentation; 3)PPROM Anesthesia Type: spinal Procedure Description Under satisfactory anesthesia, the patient was prepped and draped and placed in a supine position, tilted to the left. Pfannenstiel incision was made with a scalpel, carried through the subcutaneous tissue sharply. Fascia incised and extended bilaterally in a blunt fashion. The superior and inferior aspects of the fascia were grasped with Dell clamps and the fascia was sharply dissected off of the underlying rectus muscles. Rectus muscles bluntly divided midline. Peritoneum exposed, entered bluntly. Exploration of abdomen revealed gravid uterus. Transverse incision was made with clean scalpel in the lower segment of the uterus. Minimal amniotic fluid noted. The fetus was noted to be in aracely breech presentation and was delivered using the standard breech maneuvers without difficulty. At the time of delivery, infant was vigorous. Nasal oropharyngeal suction was performed. The cord was doubly clamped and cut after intentional 30 second delay. The baby was handed to the team for immediate attention. Cord blood was collected. The placenta was delivered intact. Uterine cavity was cleaned with wet sponge. Uterus closed in 2 layers using 0-Vicryl. The first layer was running and locking and the second was in a horizontal imbricating manner. Hemostasis was achieved. Sponge, needle and instrument count reported to be correct. The rectus muscles and fascia were examined. 0-Vicryl suture was used to reapproximate a 0.5cm defect in anterior aspect of the fascia. Small bleeders rendered hemostatic with electrocautery. Fascia closed with 0-Vicryl. The subcutaneous tissue was irrigated and small bleeders rendered hemostatic with electrocautery. The tissue was reapproximated using 2-0 Vicryl suture. The skin was reapproximated using 3-0 Monocryl on a Micky needle. Estimated blood loss 500mL. Urine bag contained 750mL of clear urine. IVF administered 1600mL. Post-Procedure Post-procedure diagnosis Same, delivered Findings: Live male , Apgars 8 and 9, weight 1670g, delivered from aracely breech presentation. Intact 3VC placenta. Normal appearing uterus, bilateral fallopian tubes and ovaries. Specimen removed: Yes Specimen description Placenta, sent to Pathology Complications None apparent Pt Condition post procedure: stable Disposition: PACU Physician Certification I, the undersigned physician, hereby certify that I have discussed the procedure described in this consent form with this patient (or the patient's legal public health representative), including: * The risk and benefits of the procedure; * Any adverse reactions that may reasonably be expected to occur; * Any alternative efficacious methods of treatment which may be medically viable ; * The potential problems that may occur during recuperation; * Potential for blood transfusion and associated risks/benefits; and * Any research or economic interest I may have regarding this treatment. I further certify that the patient/legally responsible person was encouraged to ask question and that all questions were answered. ALTAGRACIA GEORGES MD Jun 15, 2017 06:28
[2017-06-15] MEDS ORDERED: HYDROmorphONE 1 MG/ML SYG IV PRN ×2 (06:30)
[2017-06-15] MEDS ORDERED: LANOLIN 7 GM TUBE TOP PRN (06:30)
[2017-06-15] MEDS ORDERED: ZOLPIDEM 5 MG TAB PO PRN (06:30)
[2017-06-15] MEDS ORDERED: HYDROCODONE/APAP (5/325) TAB PO PRN (06:30)
[2017-06-15] MEDS ORDERED: NALOXONE (0.4 MG/ML) INJ IV PRN (06:30)
[2017-06-15] MEDS: OXYTOCIN 30 UNITS/LR 500 ML IV SCH ×3 (06:46→13:34)
[2017-06-15 07:55] LABS: ADD UMIC YES; UR ASCORBIC ACID NEGATIVE (NEGATIVE); UR BILIRUBIN (Dip) NEGATIVE (NEGATIVE); UR BLOOD (Dip) 1+ mg/dL (NEGATIVE); UR CLARITY CLEAR (CLEAR); UR COLOR STRAW (YELLOW); UR GLUCOSE (Dip) NEGATIVE (NEGATIVE); UR KETONES (Dip) NEGATIVE (NEGATIVE); UR LEUKOCYTE ESTERASE (Dip) NEGATIVE Leu/ul (NEGATIVE); UR NITRITE (Dip) NEGATIVE (NEGATIVE); UR RBC 3 /HPF (0-5); UR TOTAL PROTEIN (Dip) NEGATIVE (NEGATIVE); UR UROBILINOGEN (Dip) NEGATIVE (NEGATIVE)
[2017-06-15] MEDS: KETOROLAC 30 MG INJ IV PRN (14:44)
[2017-06-15] MEDS: LACTATED RINGER'S 1,000 ML IV SCH (17:27)
[2017-06-15] MEDS: SENNA/DOCUSATE NA (8.6MG/50MG) TAB PO SCH (21:00)
[2017-06-15] MEDS: IBUPROFEN 800 MG TAB PO SCH (22:00)
[2017-06-16] VITALS: BP 113/71; PULSE 84; RESP 18
[2017-06-16] MEDS: LACTATED RINGER'S 1,000 ML IV SCH (01:28)
[2017-06-16 04:00] VITALS: BP 120/82; PULSE 100; RESP 18
[2017-06-16] MEDS: KETOROLAC 30 MG INJ IV PRN (04:47)
[2017-06-16] MEDS: IBUPROFEN 800 MG TAB PO SCH ×3 (06:00→22:19)
[2017-06-16 08:00] VITALS: BP 116/95; PULSE 95; RESP 16
[2017-06-16] MEDS: SENNA/DOCUSATE NA (8.6MG/50MG) TAB PO SCH ×2 (08:53→22:19)
[2017-06-16 10:01] LABS: BASOPHILS % 0.3 % (0.0-2.0); EOSINOPHILS # 0.2 10^3/ul (0.0-0.5); EOSINOPHILS % 1.3 % (0.0-7.0); HEMATOCRIT 28.4 % (37.0-47.0); HEMOGLOBIN 9.1 g/dl (12.0-16.0); LYMPHOCYTES # 1.5 10^3/ul (0.8-2.9); LYMPHOCYTES % 12.2 % (15.0-51.0); MEAN CORPUSCULAR HEMOGLOBIN 28.5 pg (29.0-33.0); MEAN PLATELET VOLUME 11.9 fl (7.4-10.4); MONOCYTE # 0.5 10^3/ul (0.3-0.9); MONOCYTES % 3.6 % (0.0-11.0); NEUTROPHILS % 81.8 % (39.0-77.0); PLATELET COUNT 195 10^3/UL (140-415); RED BLOOD COUNT 3.19 10^6/ul (4.20-5.40); RED CELL DISTRIBUTION WIDTH 12.9 % (11.5-14.5); WHITE BLOOD COUNT 12.3 10^3/ul (4.8-10.8)
[2017-06-16] MEDS: HYDROCODONE/APAP (5/325) TAB PO PRN (11:42)
[2017-06-16 11:45] VITALS: BP 120/74; PULSE 98; RESP 19
[2017-06-16 16:00] VITALS: BP 120/84; PULSE 84; RESP 19
[2017-06-16 21:00] VITALS: BP 123/70; PULSE 96; RESP 18
[2017-06-17 04:00] VITALS: BP 112/86; PULSE 85; RESP 18
[2017-06-17] MEDS: IBUPROFEN 800 MG TAB PO SCH ×3 (06:13→21:58)
[2017-06-17 08:15] VITALS: BP 122/65; PULSE 91; RESP 17
[2017-06-17] MEDS: SENNA/DOCUSATE NA (8.6MG/50MG) TAB PO SCH ×2 (09:48→21:00)
--- NOTE | 2017-06-17 09:50 | PN ---
Date/Time of Note Date/Time of Note DATE: 06/17/17 TIME: 09:48 OB Subjective Subjective Subjective Post day 2 Afebrile VSs Abdomen soft Incision dry Bowel sounds present No bowel movement Extremity normal enema recommended ABIGAIL RIVERO MD Jun 17, 2017 09:50
[2017-06-17] MEDS ORDERED: NA PHOSPHATE/BIPHOS 133 ML ENEMA PR ONE (10:00)
[2017-06-17] MEDS: HYDROCODONE/APAP (5/325) TAB PO PRN (12:53)
[2017-06-17] MEDS: LACTATED RINGER'S 1,000 ML IV SCH (14:49)
[2017-06-17 15:56] VITALS: BP 122/78; PULSE 93; RESP 16
[2017-06-17 20:15] VITALS: BP 122/88; PULSE 94; RESP 18
[2017-06-18 04:15] VITALS: BP 115/77; PULSE 81; RESP 20
[2017-06-18] MEDS: IBUPROFEN 800 MG TAB PO SCH ×2 (05:32→13:36)
[2017-06-18 08:15] VITALS: BP 117/74; PULSE 87; RESP 16
[2017-06-18] MEDS ORDERED: DIPHTH/TET/ACEL PERTUSS (ADULT) 0.5 ML VIAL IM* ONE (09:00)
[2017-06-18] MEDS: SENNA/DOCUSATE NA (8.6MG/50MG) TAB PO SCH (09:20)
--- NOTE | 2017-06-18 13:01 | PD.PPDC ---
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
--- NOTE | 2017-06-18 13:05 | DS ---
Date/Time of Note Date/Time of Note DATE: 06/18/17 TIME: 13:02 Discharge Summary Admission/Discharge Info Admit Date/Time Jun 15, 2017 at 01:40 Discharge Date/Time June 18, 2017 1300 Discharge Diagnosis Post date 3 Patient Condition: Good Procedures section Hx of Present Illness Term breech presentation primary section Hospital Course Satisfactory recovery uneventful Home Meds Reported Medications Vit No.124/Iron/FA ( Vitamin Tablet) 1 Each Tablet, 1 EACH PO, TAB 05/29/17 Discontinued Scripts Acetaminophen* (Tylophen*) 500 Mg Capsule, 1 CAP PO Q6H Y for PAIN AND OR ELEVATED TEMP, #30 CAP Prov:SONU LOPEZ PA-C 01/28/17 Follow-up Plan Post instructions given recommended to make appointment to be seen at the clinic in 1 week Primary Care Provider Dani Arshad MD Time spent on discharge: < 30 minutes ABIGAIL RIVERO MD Jun 18, 2017 13:05
== END 2017-06-18 15:11 | disposition home or self-care (01) | DRG 766 ==
LOC: L-D 00:30 → OBT 00:30 → L-D 01:40 → PP1 10:21
PROVIDERS: ADMIT Obstetrics & Gynecology; ATTEND Obstetrics & Gynecology
PROC: 10D00Z1 Extraction of Products of Conception, Low, Open Approach (ICD-10-PCS; principal; 2017-06-15 05:30)
DX: O60.14X0 Preterm labor third trimester with preterm delivery third trimester, not applicable or unspecified (principal); O24.420 Gestational diabetes mellitus in childbirth, diet controlled; Z37.0 Single live birth; Z3A.34 34 weeks gestation of pregnancy; O32.1XX0 Maternal care for breech presentation, not applicable or unspecified
CPT/HCPCS: 36415; 76815; 80053; 81001; 82962; 84560; 85025; 85610; 85730; 86592; 86850; 86900; 86901; 87340; 88307; 90715; 99464; G0463; J0690; J1885; J2175; J2274; J2370; J2405; J2590; J2765; J3010; J7120